=== PATIENT | female | born 1960 | race Asian ===

== ENCOUNTER 2022-04-10 20:04 | Inpatient (IN) | payer OTHER ==
[~2022-04-10] VITALS: Ht 165.1 cm; Wt 99.8 kg
[2022-04-10] MEDS ORDERED: CINA30TA2 PO (20:27)
[2022-04-10] MEDS ORDERED: MYCO250C PO (20:27)
[2022-04-10] MEDS ORDERED: ATOR10TA PO (20:27)
[2022-04-10] MEDS ORDERED: TERA1CAP4 PO (20:27)
[2022-04-10] MEDS ORDERED: DOCU100C36 PO (20:27)
[2022-04-10] MEDS ORDERED: DILT180C66 PO (20:27)
[2022-04-10] MEDS ORDERED: TACR100O2 TP (20:27)
[2022-04-10] MEDS ORDERED: PROCHLORPERAZINE EDISYLATE 10 MG/2 ML VIAL IV ONE (20:45)
[2022-04-10] MEDS ORDERED: PANTOPRAZOLE SODIUM 40 MG VIAL IV ONE (20:45)
[2022-04-10] MEDS ORDERED: IV NORMAL SALINE 1000 ML BAG IV ONE (20:45)
--- NOTE | 2022-04-10 21:07 | NUR ---
pt taken to CT.
--- NOTE | 2022-04-10 21:17 | NUR ---
PT RETURNED FROM CT.
--- NOTE | 2022-04-10 21:40 | NUR ---
PATIENT DOES NOT RECALL ALL HOME MEDICATION NAMES AND DOSAGES AT THIS TIME.
[2022-04-10 21:44] LABS: HEMATOCRIT 37.8 % (31.2-41.9); MEAN CORPUSCULAR HEMOGLOBIN 27.2 uug (24.7-32.8); MEAN CORPUSCULAR VOLUME 84.9 fL (75.5-95.3); PLATELET COUNT (AUTO) 110 K/uL (179-408)
[2022-04-10] MEDS ORDERED: PANTOPRAZOLE SODIUM 40 MG VIAL ONE (21:44)
[2022-04-10] MEDS ORDERED: PROCHLORPERAZINE EDISYLATE 10 MG/2 ML VIAL ONE (21:45)
[2022-04-10 21:56] LABS: BILIRUBIN,DIRECT 0.3 mg/dL (0.0-0.2); BILIRUBIN,TOTAL 0.6 mg/dL (0.2-1.0); CREATININE 1.6 mg/dL (0.6-1.3); POTASSIUM 3.3 mmol/L (3.5-5.1); TOTAL PROTEIN, SERUM 7.8 g/dL (6.4-8.2)
[2022-04-10] MEDS: POTASSIUM CHLORIDE 50 ML IV SCH ×2 (22:12→23:28)
[2022-04-10] MEDS ORDERED: POTASSIUM CHLORIDE 100 ML ONE (22:19)
[2022-04-11] MEDS: MAGNESIUM SULFATE/D5W 100 ML IV SCH (00:33)
--- NOTE | 2022-04-11 00:58 | NUR ---
JACINTA PADILLA PAGED FOR PANEL CALL.
[2022-04-11 01:05] LABS: *BILIRUBIN,URIN NEGATIVE (NEGATIVE); *BLOOD, URINE 2+ (NEGATIVE); *COLOR,URINE YELLOW (YELLOW); *KETONES,URINE NEGATIVE (NEGATIVE); *UROBILINOGEN,URINE 0.2 E.U./dl (NORMAL); LEUKOCYTE ESTERASE ,URINE 1+ (NEGATIVE); NITRITE, URINE NEGATIVE (NEGATIVE); UGLUCOSE NEGATIVE (NEGATIVE)
[2022-04-11 01:09] LABS: *CLARITY,URINE HAZY (CLEAR)
[2022-04-11 01:26] LABS: BACTERIA,URINE MANY /HPF (NONE SEEN); RBC,URINE 20-50 /HPF (0-3); SQUAMOUS EPITHELIAL CELL,UR MODERATE /HPF (NONE SEEN); WBC,URINE TNTC /HPF (0-3)
[2022-04-11] MEDS ORDERED: CEFTRIAXONE 1 G in IV DEXTROSE 5% 50 ML IV ONE (01:30)
[2022-04-11] MEDS ORDERED: CEFTRIAXONE /D5W 50ML IVPB **ER PYXIS IV ONE (01:37)
[2022-04-11] MEDS ORDERED: REMEDY ESSENTIAL ZINC PASTE 113 GM TP PRN (02:00)
[2022-04-11] MEDS ORDERED: ONDANSETRON 4 MG/2 ML VIAL IV PRN (02:00)
[2022-04-11] MEDS ORDERED: MAGNESIUM HYDROXIDE 30 ML LIQUID UDC PO PRN (02:00)
[2022-04-11] MEDS ORDERED: PANTOPRAZOLE SODIUM IV 40 MG in IV DEXTROSE 5% 100 ML IV SCH (02:00)
--- NOTE | 2022-04-11 03:08 | NUR ---
GAVE REPORT TO ROMANA.
[2022-04-11 03:30] VITALS: BP 144/64
--- NOTE | 2022-04-11 03:46 | NUR ---
Pt. admitted to tele , under care of Padmini Orozco Belongs List completed
--- NOTE | 2022-04-11 04:01 | NUR ---
Admitted patient to Tele unit from Er via spencer accompanied by ER nurse.Patient [id number].Denies pain. No N/v at this time.IV patent and intact on Right AC 20g . Started IVF at 70ml /hr.Av fistula in the left upper arm with palpable thrill.Per patient she had kidney transplant 18 months ago. Skin is intact.Scar noted in the right lower quadrant.Safety measures in place. Call light with in reach.Will continue to monitor.
[2022-04-11] MEDS: ACETAMINOPHEN 325 MG TABLET PO PRN ×3 (04:03→23:29)
[2022-04-11 06:32] LABS: HEMATOCRIT 33.1 % (31.2-41.9); MEAN CORPUSCULAR VOLUME 85.4 fL (75.5-95.3); PLATELET COUNT (AUTO) 88 K/uL (179-408)
[2022-04-11 06:52] LABS: CREATININE 1.4 mg/dL (0.6-1.3); MAGNESIUM 2.2 mg/dL (1.8-2.4); PHOSPHOROUS 2.9 mg/dL (2.5-4.9); POTASSIUM 3.3 mmol/L (3.5-5.1)
[2022-04-11] MEDS: PANTOPRAZOLE SODIUM 40 MG VIAL IV SCH ×2 (08:57→20:49)
[2022-04-11] MEDS: TACROLIMUS ANHYDROUS 0.5 MG CAPSULE PO SCH ×2 (08:58→20:48)
[2022-04-11] MEDS ORDERED: MYCOPHENOLATE MOFETIL 250 MG CAPSULE PO SCH (09:00)
--- NOTE | 2022-04-11 09:30 | NUR ---
POTASSIUM LEVEL IS 3.3 MD AWARE WITH NEW REPLACEMENT ORDER AND NOTED.
[2022-04-11 11:26] VITALS: BP 176/72
--- NOTE | 2022-04-11 11:26 | NUR ---
BLOOD PRESSURE AT THIS TIME IS 176/72 HR IS 72 PATIENT STATED THAT SHE TAKES BLOOD PRESSURE MEDS BUT CANNOT REMEMBER THE NAMES BUT STATED THAT SHE GETS HER MEDS FROM [facility] SO I CALLED [facility] SPOKE WITH ALEJANDRO THE PHARMACIST AND SHE GAVE ME THE LISTS OF ALL THE BLOOD PRESSURE MEDS AND I RELAYED THEM TO DR QUINONES WITH NEW ORDERS AND NOTED
[2022-04-11] MEDS ORDERED: DILTIAZEM HCL 60 MG TABLET PO STA (11:48)
--- NOTE | 2022-04-11 11:48 | NUR ---
CALL RECEIVED FROM DR QUINONES WITH NEW ORDERS AND NOTED.
[2022-04-11] MEDS ORDERED: POTASSIUM CHLORIDE 20 MEQ TAB.PRT.SR PO ONE (12:00)
[2022-04-11] MEDS ORDERED: DILTIAZEM HCL CD 120 MG CAP.SR.24H PO ONE (12:15)
[2022-04-11] MEDS ORDERED: ATOR20TA PO (12:48)
[2022-04-11] MEDS ORDERED: TERA2CAP4 PO (12:48)
[2022-04-11] MEDS ORDERED: DILT30TA35 PO (12:48)
[2022-04-11] MEDS ORDERED: ERGO500040 PO (12:48)
[2022-04-11] MEDS ORDERED: MYCO250C8 PO (12:59)
[2022-04-11] MEDS ORDERED: MYCO500T PO (12:59)
[2022-04-11] MEDS ORDERED: FURO-152 PO (12:59)
[2022-04-11] MEDS ORDERED: INSU100I34 SQ (12:59)
[2022-04-11] MEDS ORDERED: CINA30TA6 PO (13:01)
[2022-04-11] MEDS ORDERED: LOSA100T31 PO (13:01)
[2022-04-11] MEDS ORDERED: TACR1CAP7 PO (13:01)
[2022-04-11] MEDS ORDERED: DOCU-141 PO (13:03)
[2022-04-11] MEDS ORDERED: DILT120T2 PO (13:04)
[2022-04-11] MEDS ORDERED: DEXTROSE 50% 50 ML DISP.SYRIN IV PRN (15:00)
[2022-04-11 15:17] LABS: *BILIRUBIN,URIN NEGATIVE (NEGATIVE); *BLOOD, URINE 2+ (NEGATIVE); *CLARITY,URINE CLEAR (CLEAR); *COLOR,URINE YELLOW (YELLOW); *KETONES,URINE NEGATIVE (NEGATIVE); *UROBILINOGEN,URINE 0.2 E.U./dl (NORMAL); LEUKOCYTE ESTERASE ,URINE NEGATIVE (NEGATIVE); NITRITE, URINE NEGATIVE (NEGATIVE); UGLUCOSE 3+ (NEGATIVE)
--- NOTE | 2022-04-11 15:17 | NUR ---
TEMP AT THIS TIME IS 102.0 B/P IS 177/[address] QUINONES PATIENT MEDICATED WITH TYLENOL FOR THE TEMP VASOTEC FOR THE BLOOD PRESSURE AND COOLING MEASURES STARTED WILL CONTINUE TO OBSERVE.
[2022-04-11 15:25] LABS: *CREATININE,URINE 49.1 mg/dL (30-125); *URINE TOTAL PROTEIN RANDOM 23.8 mg/dL (<150/24HR)
[2022-04-11] MEDS: ENALAPRILAT DIHYDRATE 1.25 MG/1 ML VIAL IV PRN (15:31)
[2022-04-11 15:34] VITALS: BP 177/75
[2022-04-11] MEDS: BLOOD SUGAR DIAGNOSTIC 1 EACH STRIP VI SCH ×2 (16:23→23:50)
[2022-04-11] MEDS: INSULIN REGULAR, HUMAN 300 UNIT/3 ML VIAL SQ PRN ×2 (16:25→23:39)
[2022-04-11] MEDS: CEFEPIME HCL 1 G in IV DEXTROSE 5% 50 ML IV SCH (16:49)
[2022-04-11] MEDS ORDERED: Medication Not On Formulary EA (Mycophenolate Mofetil (Cellcept) 500 MG) PO SCH (17:00)
[2022-04-11] MEDS ORDERED: TACROLIMUS ANHYDROUS 1 MG CAPSULE PO SCH (17:00)
[2022-04-11] MEDS: IV NS 1000 ML 1,000 ML IV PRN (17:45)
[2022-04-11] MEDS ORDERED: VANCOMYCIN IV 1,500 MG in IV DEXTROSE 5% 500 ML IV ONE (18:00)
--- NOTE | 2022-04-11 18:00 | NUR ---
TEMP RECHECKED AND ITS 99.6 AND B/P IS 123/66 DR COHEN HERE SEEN PATIENT WITH NEW ORDERS.
[2022-04-11] MEDS ORDERED: MICAFUNGIN SODIUM 100 MG in IV NORMAL SALINE 100 ML IV SCH (20:00)
[2022-04-11] MEDS: MYCOPHENOLATE MOFETIL 250 MG CAPSULE PO SCH (20:49)
[2022-04-11] MEDS: TERAZOSIN 1 MG CAPSULE PO SCH (20:50)
[2022-04-11] MEDS ORDERED: ATORVASTATIN 20 MG TABLET PO SCH (21:00)
[2022-04-11 21:02] VITALS: BP 132/50
[2022-04-11 21:46] LABS: BACTERIA,URINE NONE SEEN /HPF (NONE SEEN); SQUAMOUS EPITHELIAL CELL,UR MODERATE /HPF (NONE SEEN); WBC,URINE 0-3 /HPF (0-3)
[2022-04-11] MEDS ORDERED: METRONIDAZOLE 500 MG/NS 100ML 100 ML IV ONE (21:46)
[2022-04-11] MEDS: METRONIDAZOLE 500 MG/NS 100ML 500 MG in PREMIXED 1 EACH IV SCH (22:37)
[2022-04-12] VITALS (7 sets, daily range): BP systolic 117–170; BP diastolic 52–72
[2022-04-12] MEDS: CEFEPIME HCL 1 G in IV DEXTROSE 5% 50 ML IV SCH ×3 (00:25→20:36)
[2022-04-12] MEDS ORDERED: CEFTRIAXONE 1 G in IV DEXTROSE 5% 50 ML IV SCH (02:00)
--- NOTE | 2022-04-12 04:18 | NUR ---
Awake alert and oriented x3-4 Needs attended. On telemetry patient on sinus rhythm. On continous 2L of O2 via nasal cannula. pulse ox 96% Needs attended. Kept comfortable. IVF's infusing well via right forearm heplock. IV ABT's given as ordered. No acute distress noted. Accucheck @ 0000 was 189 with coverage given. Incontinent of bowel and bladder. No BM noted this shift. Will monitor patient. Temp 100.2 Tylenol given. NPO maintained except meds. Fall precautions maintained. Siderails up for safety.
[2022-04-12] MEDS: METRONIDAZOLE 500 MG/NS 100ML 500 MG in PREMIXED 1 EACH IV SCH ×3 (05:31→22:28)
[2022-04-12] MEDS: BLOOD SUGAR DIAGNOSTIC 1 EACH STRIP VI SCH ×3 (05:49→17:27)
[2022-04-12] MEDS: INSULIN REGULAR, HUMAN 300 UNIT/3 ML VIAL SQ PRN ×3 (06:06→17:28)
--- NOTE | 2022-04-12 06:30 | NUR ---
Accucheck 161, 3units humalog given. NPO maintained. No acute distress noted.IVF's infusing well. Needs attended. Will monitor patient.
[2022-04-12 06:49] LABS: MEAN CORPUSCULAR HEMOGLOBIN 27.2 uug (24.7-32.8); MEAN CORPUSCULAR VOLUME 87.7 fL (75.5-95.3); PLATELET COUNT (AUTO) 72 K/uL (179-408)
[2022-04-12 07:10] LABS: BILIRUBIN,TOTAL 0.5 mg/dL (0.2-1.0); CREATININE 1.4 mg/dL (0.6-1.3); PHOSPHOROUS 2.8 mg/dL (2.5-4.9); POTASSIUM 3.8 mmol/L (3.5-5.1); TOTAL PROTEIN, SERUM 6.2 g/dL (6.4-8.2)
[2022-04-12] MEDS: CINACALCET HCL 30 MG TABLET PO SCH (09:14)
[2022-04-12] MEDS: TACROLIMUS ANHYDROUS 0.5 MG CAPSULE PO SCH ×2 (09:14→20:40)
[2022-04-12] MEDS: MYCOPHENOLATE MOFETIL 250 MG CAPSULE PO SCH ×2 (09:14→20:38)
[2022-04-12] MEDS: PANTOPRAZOLE SODIUM 40 MG VIAL IV SCH (09:14)
[2022-04-12] MEDS: DILTIAZEM HCL 60 MG TABLET PO SCH (09:45)
--- NOTE | 2022-04-12 09:47 | NUR ---
pt is a/o x 4, no complaint of pain, no report of emesis. Pt states she is hungry and wants to eat, educated on NPO status. Pt is running a temperature of 100.1, cooling measures provided, administered acetaminophen. comfort measures provided, Will continue to monitor.
--- NOTE | 2022-04-12 11:36 | NUR ---
Pt temp decreased to 99.2. Pt no longer NPO status. Reported feeling dizzy from not eating, MD notified, CCHO diet per MD. Cooling measures provided, will continue to monitor.
[2022-04-12 11:48] LABS: IRON, SERUM 18 ug/dL (50-175)
[2022-04-12] MEDS ORDERED: VANCOMYCIN IV 1,250 MG in IV DEXTROSE 5% 250 ML IV SCH (12:00)
[2022-04-12] MEDS: ACETAMINOPHEN 325 MG TABLET PO PRN (18:23)
[2022-04-12] MEDS: TERAZOSIN 1 MG CAPSULE PO SCH (20:39)
[2022-04-12] MEDS: IV NS 1000 ML 1,000 ML IV PRN (21:33)
[2022-04-12] MEDS ORDERED: MICAFUNGIN SODIUM 100 MG in IV NORMAL SALINE 100 ML IV SCH (22:00)
--- NOTE | 2022-04-12 22:56 | NUR ---
Micafungin Sodium 100mg not given, not available per RN counselor supervisor.
[2022-04-13] MEDS ORDERED: DEXTROSE 50% 50 ML DISP.SYRIN IV PRN
[2022-04-13] MEDS: BLOOD SUGAR DIAGNOSTIC 1 EACH STRIP VI SCH ×5 (00:08→21:07)
[2022-04-13] MEDS: ENALAPRILAT DIHYDRATE 1.25 MG/1 ML VIAL IV PRN (00:20)
[2022-04-13] MEDS: INSULIN REGULAR, HUMAN 300 UNITS/3 ML VIAL SQ PRN ×2 (00:22→21:12)
[2022-04-13 03:53] VITALS: BP 147/65
[2022-04-13] MEDS: METRONIDAZOLE 500 MG/NS 100ML 500 MG in PREMIXED 1 EACH IV SCH ×3 (05:30→21:50)
[2022-04-13] MEDS: PANTOPRAZOLE SODIUM 40 MG TABLET.DR PO SCH (06:22)
[2022-04-13 07:04] LABS: MEAN CORPUSCULAR HEMOGLOBIN 27.6 uug (24.7-32.8); MEAN CORPUSCULAR VOLUME 85.3 fL (75.5-95.3); PLATELET COUNT (AUTO) 73 K/uL (179-408)
[2022-04-13 07:27] LABS: CREATININE 1.3 mg/dL (0.6-1.3); MAGNESIUM 1.9 mg/dL (1.8-2.4); PHOSPHOROUS 2.8 mg/dL (2.5-4.9); POTASSIUM 3.9 mmol/L (3.5-5.1)
[2022-04-13] MEDS: CEFEPIME HCL 1 G in IV DEXTROSE 5% 50 ML IV SCH ×2 (08:13→20:42)
[2022-04-13] MEDS: CINACALCET HCL 30 MG TABLET PO SCH (08:13)
[2022-04-13] MEDS: TACROLIMUS ANHYDROUS 0.5 MG CAPSULE PO SCH ×2 (08:14→20:47)
[2022-04-13] MEDS: DILTIAZEM HCL 60 MG TABLET PO SCH (08:19)
[2022-04-13 08:21] LABS: EOSINOPHILS % (MANUAL) 1 % (0-8); LYMPHOCYTES % (MANUAL) 10 % (20-40); MONOCYTES % (MANUAL) 10 % (2-10); NEUTROPHILS % (MANUAL) 79 % (42-75)
--- NOTE | 2022-04-13 08:30 | NUR ---
patient received in bed, sleeping at the moment.
[2022-04-13] MEDS: MYCOPHENOLATE MOFETIL 250 MG CAPSULE PO SCH ×2 (08:39→20:43)
[2022-04-13] MEDS ORDERED: MICAFUNGIN SODIUM 100 MG in IV NORMAL SALINE 100 ML IV SCH (09:00)
[2022-04-13] MEDS: MICAFUNGIN SODIUM 100 MG in IV NORMAL SALINE 100 ML IV SCH (10:47)
[2022-04-13 11:07] LABS: A/G RATIO 0.8 (0.7-1.7); ALBUMIN 2.5 g/dL (2.9-4.4); ALPHA-1-GLOBULIN 0.4 g/dL (0.0-0.4); BETA GLOBULIN 0.9 g/dL (0.7-1.3); GAMMA GLOBULIN 0.9 g/dL (0.4-1.8); M-SPIKE Not Observed g/dL (Not Observed)
[2022-04-13 11:30] VITALS: BP 115/75
[2022-04-13] MEDS: INSULIN REGULAR, HUMAN 300 UNIT/3 ML VIAL SQ PRN ×2 (11:41→16:53)
--- NOTE | 2022-04-13 13:10 | NUR ---
Patient had her breakfast and lunch, has some cough. Chest Xray was ordered, but no acute disease is detected. patient is not complaining about pain or any distress.
[2022-04-13 15:05] VITALS: BP 104/75
[2022-04-13 20:30] VITALS: BP 153/65
[2022-04-13] MEDS: IV NS 1000 ML 1,000 ML IV PRN (20:42)
[2022-04-13] MEDS: TERAZOSIN 1 MG CAPSULE PO SCH (20:47)
--- NOTE | 2022-04-14 00:16 | NUR ---
Received pt awake and afebrile on bed with no respiratory distress noted. She is alert and oriented x3, able to make needs known. Denies pain and discomfort at this time. Midline on PIERO patent and intact, infusing well with NS running 75 ml/hr. All needs attended. Call light placed within reach. Will endorse to next shift.
[2022-04-14] MEDS: ENALAPRILAT DIHYDRATE 1.25 MG/1 ML VIAL IV PRN (03:48)
--- NOTE | 2022-04-14 03:50 | NUR ---
BP 176/76, Vasotec IV PRN given.
[2022-04-14 03:55] VITALS: BP 176/76
[2022-04-14] MEDS: METRONIDAZOLE 500 MG/NS 100ML 500 MG in PREMIXED 1 EACH IV SCH (05:49)
[2022-04-14] MEDS: PANTOPRAZOLE SODIUM 40 MG TABLET.DR PO SCH (06:02)
--- NOTE | 2022-04-14 06:27 | NUR ---
No significant changes noted. Denies pain and discomfort. Accucheck done, BS 210. All needs attended. Call light placed within reach. Will endorse to next shift for continuity of care.
[2022-04-14] MEDS: BLOOD SUGAR DIAGNOSTIC 1 EACH STRIP VI SCH ×4 (06:42→20:27)
[2022-04-14] MEDS: INSULIN REGULAR, HUMAN 300 UNIT/3 ML VIAL SQ PRN ×3 (07:41→16:37)
[2022-04-14] MEDS: MYCOPHENOLATE MOFETIL 250 MG CAPSULE PO SCH ×2 (08:41→20:26)
[2022-04-14] MEDS: CINACALCET HCL 30 MG TABLET PO SCH (08:42)
[2022-04-14] MEDS: TACROLIMUS ANHYDROUS 0.5 MG CAPSULE PO SCH ×2 (08:42→20:26)
[2022-04-14] MEDS: DILTIAZEM HCL 60 MG TABLET PO SCH (09:22)
[2022-04-14] MEDS: CEFEPIME HCL 1 G in IV DEXTROSE 5% 50 ML IV SCH (10:00)
[2022-04-14] MEDS: MICAFUNGIN SODIUM 100 MG in IV NORMAL SALINE 100 ML IV SCH (11:05)
[2022-04-14 16:15] VITALS: BP 144/65
[2022-04-14] MEDS: IV NS 1000 ML 1,000 ML IV PRN (19:56)
[2022-04-14 20:00] VITALS: BP 178/69
[2022-04-14] MEDS: INSULIN REGULAR, HUMAN 300 UNITS/3 ML VIAL SQ PRN (20:26)
[2022-04-14] MEDS ORDERED: INSULIN GLARGINE,HUM 300 UNITS/3 ML CARTRIDGE SQ SCH (21:00)
[2022-04-14] MEDS: TERAZOSIN 1 MG CAPSULE PO SCH (21:00)
[2022-04-14] MEDS: hydrALAZINE HCL 25 MG TABLET PO PRN (21:09)
[2022-04-15 04:57] VITALS: BP 152/67
[2022-04-15] MEDS: hydrALAZINE HCL 25 MG TABLET PO PRN (05:34)
[2022-04-15] MEDS: BLOOD SUGAR DIAGNOSTIC 1 EACH STRIP VI SCH ×4 (06:20→20:47)
[2022-04-15] MEDS: PANTOPRAZOLE SODIUM 40 MG TABLET.DR PO SCH (06:20)
[2022-04-15 06:43] LABS: MEAN CORPUSCULAR HEMOGLOBIN 27.5 uug (24.7-32.8); MEAN CORPUSCULAR VOLUME 84.6 fL (75.5-95.3); PLATELET COUNT (AUTO) 130 K/uL (179-408)
[2022-04-15 07:15] LABS: CREATININE 1.2 mg/dL (0.6-1.3); MAGNESIUM 1.4 mg/dL (1.8-2.4); PHOSPHOROUS 2.9 mg/dL (2.5-4.9); POTASSIUM 3.8 mmol/L (3.5-5.1)
[2022-04-15] MEDS: CINACALCET HCL 30 MG TABLET PO SCH (09:01)
[2022-04-15] MEDS: TACROLIMUS ANHYDROUS 0.5 MG CAPSULE PO SCH ×2 (09:01→20:40)
[2022-04-15] MEDS: DILTIAZEM HCL 60 MG TABLET PO SCH (09:01)
[2022-04-15] MEDS: MYCOPHENOLATE MOFETIL 250 MG CAPSULE PO SCH ×2 (09:02→20:39)
[2022-04-15] MEDS: INSULIN REGULAR, HUMAN 300 UNIT/3 ML VIAL SQ PRN ×3 (09:04→17:44)
[2022-04-15] MEDS ORDERED: MAGNESIUM OXIDE 400 MG TABLET PO ONE (09:30)
[2022-04-15] MEDS: INSULIN GLARGINE,HUM 300 UNITS/3 ML CARTRIDGE SQ SCH ×2 (10:16→20:48)
[2022-04-15 11:05] VITALS: BP 140/75
[2022-04-15] MEDS: MICAFUNGIN SODIUM 100 MG in IV NORMAL SALINE 100 ML IV SCH (12:01)
[2022-04-15 15:13] VITALS: BP 150/62
[2022-04-15] MEDS: TERAZOSIN 1 MG CAPSULE PO SCH (20:41)
[2022-04-15 20:42] VITALS: BP 152/63
[2022-04-15] MEDS: INSULIN REGULAR, HUMAN 300 UNITS/3 ML VIAL SQ PRN (20:49)
[2022-04-16] MEDS: IV NS 1000 ML 1,000 ML IV PRN (00:17)
[2022-04-16 04:27] VITALS: BP 158/68
[2022-04-16] MEDS: hydrALAZINE HCL 25 MG TABLET PO PRN (04:28)
[2022-04-16] MEDS: PANTOPRAZOLE SODIUM 40 MG TABLET.DR PO SCH (06:53)
[2022-04-16] MEDS: BLOOD SUGAR DIAGNOSTIC 1 EACH STRIP VI SCH ×2 (06:56→11:39)
[2022-04-16] MEDS ORDERED: DILTIAZEM HCL CD 180 MG CAP.SR.24H PO SCH (09:15)
[2022-04-16] MEDS: MICAFUNGIN SODIUM 100 MG in IV NORMAL SALINE 100 ML IV SCH (09:47)
[2022-04-16] MEDS: CINACALCET HCL 30 MG TABLET PO SCH (09:51)
[2022-04-16] MEDS: MYCOPHENOLATE MOFETIL 250 MG CAPSULE PO SCH (09:51)
[2022-04-16] MEDS: TACROLIMUS ANHYDROUS 0.5 MG CAPSULE PO SCH (09:51)
[2022-04-16] MEDS: INSULIN GLARGINE,HUM 300 UNITS/3 ML CARTRIDGE SQ SCH (10:06)
[2022-04-16] MEDS ORDERED: DILT180C66 PO (10:31)
[2022-04-16] MEDS ORDERED: PANT40TA49 PO (10:31)
[2022-04-16] MEDS ORDERED: ATOR10TA PO (10:31)
[2022-04-16] MEDS: INSULIN REGULAR, HUMAN 300 UNIT/3 ML VIAL SQ PRN (11:41)
[2022-04-16 11:54] VITALS: BP 165/75
== END 2022-04-16 12:55 | disposition home or self-care (01) | DRG 720 ==
LOC: ER 20:08 → TELE3 04-11 03:18 → MEDSURG3 04-13 10:18
PROVIDERS: ADMIT Nurse Practitioner Acute Care; ATTEND Internal Medicine
PROC: 05HD33Z Insertion of Infusion Device into Right Cephalic Vein, Percutaneous Approach (ICD-10-PCS; principal; 2022-04-12)
DX: B37.7 Candidal sepsis (principal); N17.0 Acute kidney failure with tubular necrosis; R65.20 Severe sepsis without septic shock; T86.19 Other complication of kidney transplant; K57.91 Diverticulosis of intestine, part unspecified, without perforation or abscess with bleeding; A41.89 Other specified sepsis; B37.49 Other urogenital candidiasis; B96.89 Other specified bacterial agents as the cause of diseases classified elsewhere; Z79.899 Other long term (current) drug therapy; R91.1 Solitary pulmonary nodule; E66.01 Morbid (severe) obesity due to excess calories; Z68.36 Body mass index [BMI] 36.0-36.9, adult; E78.5 Hyperlipidemia, unspecified; K82.8 Other specified diseases of gallbladder; E87.6 Hypokalemia; D84.821 Immunodeficiency due to drugs; R05.9 Cough, unspecified; Z20.822 Contact with and (suspected) exposure to COVID-19; I10 Essential (primary) hypertension; K52.9 Noninfective gastroenteritis and colitis, unspecified; E11.65 Type 2 diabetes mellitus with hyperglycemia; D69.6 Thrombocytopenia, unspecified; E21.2 Other hyperparathyroidism
CPT/HCPCS: 36415; 70030-TC; 71045; 83550; 83605; 83690; 83735; 83970; 84100; 84155; 84156; 84165; 84300; 85025; 85730; 86850; 86900; 86901; 87040; 87086; 93005; 97161; A4663; C9113; G0378; J0692; J0696; J0780; J1815; J2248; J3370; J3475; J3480; J3490; J7040; J7050; J7060; J7507; J7517